=== PATIENT | male | born 1990 | race Caucasian/White ===

== ENCOUNTER 2019-02-23 21:29 | Emergency (ER) | payer OTHER ==
[~2019-02-23] VITALS: Ht 182.9 cm; Wt 79.6 kg
--- NOTE | 2019-02-23 21:35 | ED.ADGEN ---
Past History Past Medical History: Anxiety, Depression, Fibromyalgia, Seizure, Schizophrenia, Other Past Medical History Borderline Personality, Schizoaffective, Behavior Disorder Hx. of Head Injury Adult General Chief Complaint Chief Complaint ".. I guess ... had a seizure... I was on Keppra 1500 .. but they took it down to 1000..." HPI HPI Patient is a 28 year old male [place] inmate who presents with above history of prolonged tonic-clonic seizure approximately 30 minutes. Pt. seizure resolved after two dosages of 5 mg versed IV x 2 by paramedics. Pt. recently had Keppra daily dosage reduced to `1000 mg from 1500. Pt. also on Depakote. Patient states his seizure disorder started after head trauma. Patient does have a history of psychological issues, depression, behavioral , schizoaffective, bipolar, borderline, hx of hallucinations and anxiety disorder. Hx. of attempted suicide by hanging 1 to 2 months ago. Patient denies any current drug use. Patient currently verbal and responds to questions appropriately.. Review of Systems Review of Systems Constitutional: Denies fever or chills [] Eyes: Denies change in visual acuity, redness, or eye pain [] HENT: Denies nasal congestion or sore throat [] Respiratory: Denies cough or shortness of breath [] Cardiovascular: No additional information not addressed in HPI [] GI: Denies abdominal pain, nausea, vomiting, bloody stools or diarrhea [] : Denies dysuria or hematuria [] Musculoskeletal: Denies back pain or joint pain [] Integument: Denies rash or skin lesions [] Neurologic: Denies headache, focal weakness or sensory changes [] Endocrine: Denies polyuria or polydipsia [] All other systems were reviewed and found to be within normal limits, except as documented in this note. Family History Family History Noncontributory Current Medications Current Medications Current Medications Medications (Trade) Dose Ordered Sig/Suzanne Start Time Stop Time Status Last Admin Dose Admin Lactated Ringer's 1,000 ml @ 1,000 mls/hr Q1H 02/23/19 21:45 02/23/19 22:44 DC 02/23/19 22:29 1,000 MLS/HR Levetiracetam (Keppra) 500 mg STK-MED ONCE 02/23/19 22:32 02/23/19 22:33 DC Levetiracetam 1000 mg/Sodium Chloride 100 ml @ 400 mls/hr 1X ONCE 02/23/19 21:45 02/23/19 22:03 DC 02/23/19 22:40 400 MLS/HR Lorazepam (Ativan Inj) 2 mg 1X ONCE 02/23/19 22:00 02/23/19 22:03 DC 02/23/19 22:28 2 MG Sodium Chloride 50 ml @ As Directed STK-MED ONCE 02/23/19 22:32 02/23/19 22:33 DC Valproic Acid (Depacon) 500 mg STK-MED ONCE 02/23/19 22:32 02/23/19 22:32 DC Valproic Acid 500 mg/Sodium Chloride 55 ml @ 55 mls/hr 1X 02/23/19 22:45 02/24/19 00:55 DC 02/23/19 22:40 55 MLS/HR Allergies Allergies Allergies Uncoded Allergies Type Severity Reaction Last Updated Verified pcn Allergy Unknown 02/23/19 Physical Exam Physical Exam Constitutional: Well developed, well nourished, no acute distress, non-toxic appearance. [] HENT: Normocephalic, atraumatic, bilateral external ears normal, oropharynx moist, no oral exudates, nose normal. []No bite de jesus on tongue. Eyes: PERRLA, EOMI, conjunctiva normal, no discharge. [] Neck: Normal range of motion, no tenderness, supple, no stridor. [] Cardiovascular:Heart rate regular rhythm, no murmur [] Lungs & Thorax: Bilateral breath sounds equal at apex on auscultation [] Abdomen: Bowel sounds creased, soft, no tenderness, no masses, no pulsatile masses. [] Pt. did not have urinary incontinence with his seizure like activity. Skin: Warm, dry, no erythema, no rash, multiple tattoos. Back: No tenderness, no CVA tenderness. [] Extremities: No tenderness, no cyanosis, no clubbing, ROM intact, no edema. [] Neurologic: Alert and oriented X 3, normal motor function, normal sensory function, no focal deficits noted. [] DTR + 2, Brachial and patella. ( noted during one shaking episode- no eye focus change, protective responsive intact, seizure activity stopped when we prepared to get a urinary cath placement. ) Psychologic: Affect normal, judgement normal, mood normal. [] Current Patient Data Vital Signs Vital Signs Date Time Temp Pulse Resp B/P (MAP) Pulse Ox O2 Delivery O2 Flow Rate FiO2 02/23/19 21:30 98.4 76 16 96 Room Air Lab Results Laboratory Tests Test 02/23/19 21:45 White Blood Count 5.1 x10^3/uL (4.0-11.0) Red Blood Count 4.07 x10^6/uL (4.30-5.70) L Hemoglobin 13.2 g/dL (13.0-17.5) Hematocrit 38.8 % (39.0-53.0) L Mean Corpuscular Volume 95 fL (79-100) Mean Corpuscular Hemoglobin 33 pg (25-35) Mean Corpuscular Hemoglobin Concent 34 g/dL (31-37) Red Cell Distribution Width 13.0 % (11.5-14.5) Platelet Count 168 x10^3/uL (140-400) Neutrophils (%) (Auto) 52 % (31-73) Lymphocytes (%) (Auto) 36 % (24-48) Monocytes (%) (Auto) 8 % (0-9) Eosinophils (%) (Auto) 3 % (0-3) Basophils (%) (Auto) 1 % (0-3) Neutrophils # (Auto) 2.7 x10^3uL (1.8-7.7) Lymphocytes # (Auto) 1.8 x10^3/uL (1.0-4.8) Monocytes # (Auto) 0.4 x10^3/uL (0.0-1.1) Eosinophils # (Auto) 0.1 x10^3/uL (0.0-0.7) Basophils # (Auto) 0.0 x10^3/uL (0.0-0.2) Erythrocyte Sedimentation Rate 1 (0-15) Prothrombin Time 11.0 SEC (9.4-11.4) Prothrombin Time INR 1.1 (0.9-1.1) Activated Partial Thromboplast Time 28 SEC (23-33) D-Dimer (Katie) 0.30 mg/L (0.00-0.50) Sodium Level 144 mmol/L (136-145) Potassium Level 3.6 mmol/L (3.5-5.1) Chloride Level 107 mmol/L (98-107) Carbon Dioxide Level 28 mmol/L (21-32) Anion Gap 9 (6-14) Blood Urea Nitrogen 11 mg/dL (8-26) Creatinine 1.0 mg/dL (0.7-1.3) Estimated GFR (Cockcroft-Gault) 90.3 Glucose Level 114 mg/dL (70-99) H Calcium Level 9.1 mg/dL (8.5-10.1) Magnesium Level 2.0 mg/dL (1.8-2.4) Total Bilirubin 0.3 mg/dL (0.2-1.0) Direct Bilirubin 0.1 mg/dL (0.0-0.2) Aspartate Amino Transferase (AST) 25 U/L (15-37) Alanine Aminotransferase (ALT) 18 U/L (16-63) Alkaline Phosphatase 74 U/L (46-116) Creatine Kinase 515 U/L (39-308) H Troponin I Quantitative < 0.017 ng/mL (0-0.055) MC-Orf-R-Type Natriuretic Peptide 113 pg/mL (0-124) Total Protein 6.7 g/dL (6.4-8.2) Albumin 3.9 g/dL (3.4-5.0) Lipase 72 U/L (73-393) L Valproic Acid Level 43 mcg/mL (50-100) L Valproic Acid Last Dose Date Unknown Valproic Acid Last Dose Time Unknown EKG EKG [][address] [address] IMAGING REPORT Signed PATIENT: CALVIN HERRMANN ACCOUNT: [id number] : 1990 LOCATION: ER AGE: 28 SEX: M EXAM STATUS: PRE ER ORD. PHYSICIAN: MICHELLE HAILE MD REASON: SEIZURE PROCEDURE: PORTABLE CHEST 1V PORTABLE CHEST 1V History: Seizures Comparison: None. Findings: Single view of the chest is submitted. There is no infiltrate, pneumothorax, or effusion. The pericardial cardiac silhouette is within normal limits in size. Impression: 1. There is no radiographic evidence of acute cardiopulmonary disease. Electronically signed by: Rosalva Castillo MD (02/23/2019 10:16 PM) [facility] DICTATED AND SIGNED BY: ROSALVA CASTILLO MD DATE: 02/23/192215 CC: MICHELLE HAILE MD ~ Radiology/Procedures Radiology/Procedures [address] [address] IMAGING REPORT Signed PATIENT: CALVIN HERRMANN ACCOUNT: [id number] : 1990 LOCATION: ER AGE: 28 SEX: M EXAM STATUS: PRE ER ORD. PHYSICIAN: MICHELLE HAILE MD REASON: MULITPLE SEIZURES PROCEDURE: CT HEAD WO CONTRAST CT HEAD WO CONTRAST History: Multiple seizures Comparison: None. Technique: Noncontrast CT imaging was performed of the head. Exposure: One or more of the following individualized dose reduction techniques were utilized for this examination: 1. Automated exposure control 2. Adjustment of the mA and/or kV according to patient size 3. Use of iterative reconstruction technique. Findings: No acute extra-axial or parenchymal hemorrhage is identified. There is no significant intra-axial mass effect, midline shift, or extra-axial fluid collection. The to-white differentiation of the major vascular territories is preserved. The ventricles, sulci, and cisterns are within normal limits in size and configuration. Mastoid air cells are aerated. There is likely mucus retention cyst left sigmoid sinus about 0.9 cm, small air-fluid level or dependent mucosal thickening of the sphenoid sinus. No acute calvarial abnormality is identified. Impression: 1. No acute intracranial abnormality is identified. 2. There is small air-fluid level or dependent mucosal thickening in the sphenoid sinus. Electronically signed by: Rosalva Castillo MD (02/23/2019 10:16 PM) [facility] DICTATED AND SIGNED BY: ROSALVA CASTILLO MD DATE: 02/23/[address] [address] IMAGING REPORT Signed PATIENT: CALVIN HERRMANN ACCOUNT: [id number] : 1990 LOCATION: ER AGE: 28 SEX: M EXAM STATUS: PRE ER ORD. PHYSICIAN: MICHELLE HAILE MD REASON: MULITPLE SEIZURES PROCEDURE: CT HEAD WO CONTRAST CT HEAD WO CONTRAST History: Multiple seizures Comparison: None. Technique: Noncontrast CT imaging was performed of the head. Exposure: One or more of the following individualized dose reduction techniques were utilized for this examination: 1. Automated exposure control 2. Adjustment of the mA and/or kV according to patient size 3. Use of iterative reconstruction technique. Findings: No acute extra-axial or parenchymal hemorrhage is identified. There is no significant intra-axial mass effect, midline shift, or extra-axial fluid collection. The to-white differentiation of the major vascular territories is preserved. The ventricles, sulci, and cisterns are within normal limits in size and configuration. Mastoid air cells are aerated. There is likely mucus retention cyst left sigmoid sinus about 0.9 cm, small air-fluid level or dependent mucosal thickening of the sphenoid sinus. No acute calvarial abnormality is identified. Impression: 1. No acute intracranial abnormality is identified. 2. There is small air-fluid level or dependent mucosal thickening in the sphenoid sinus. Electronically signed by: Rosalva Castillo MD (02/23/2019 10:16 PM) [facility] DICTATED AND SIGNED BY: ROSALVA CASTILLO MD DATE: 02/23/192215 [][place] [address] IMAGING REPORT Signed PATIENT: CALVIN HERRMANN ACCOUNT: [id number] : 1990 LOCATION: ER AGE: 28 SEX: M EXAM STATUS: PRE ER ORD. PHYSICIAN: MICHELLE HAILE MD REASON: SEIZURE PROCEDURE: PORTABLE CHEST 1V PORTABLE CHEST 1V History: Seizures Comparison: None. Findings: Single view of the chest is submitted. There is no infiltrate, pneumothorax, or effusion. The pericardial cardiac silhouette is within normal limits in size. Impression: 1. There is no radiographic evidence of acute cardiopulmonary disease. Electronically signed by: Rosalva Castillo MD (02/23/2019 10:16 PM) [facility] DICTATED AND SIGNED BY: ROSALVA CASTILLO MD DATE: 02/23/19 2216 Course & Med Decision Making Course & Med Decision Making Pertinent Labs and Imaging studies reviewed. (See chart for details) Note pt. refused urine and or cath for urine. Pt. to increase Sreprfuk709 bid, and Keppra 1500. Consider follow up with neurology. There is some question on the the reported seizure he had here - appeared to be pseudo seizure. Would expect CK to be more than 5l5 if he behaving tonic clonic seizure for 30 min. Did have a subtherapeutic Valporic level 43. Would follow up prolactin level draw here. If he did have Tonic Clonic seizure would expect prolactin level to be elevated. [] Final Impression Final Impression 1. Hx. of Tonic-clonic seizure[]x 30 min prior to arrival 2. Hx of Seizure Disorder 3. Hx. of borderline personality 4. History depression 5 History of anxiety disorder 6. History of schizoaffective disorder 7.Past history of polysubstance abuse 8. Subtherapeutic Valporic level 43 9. Mild elevation CK 515 10. Concern may be having Pseudo Seizures for Meds and other secondary gain (even if he does have a seizure disorder hx) Dragon Disclaimer Dragon Disclaimer This electronic medical record was generated, in whole or in part, using a voice recognition dictation system. Dragon Disclaimer This chart was dictated in whole or in part using Voice Recognition software in a busy, high-work load, and often noisy Emergency Department environment. It may contain unintended and wholly unrecognized errors or omissions. Dragon Disclaimer This chart was dictated in whole or in part using Voice Recognition software in a busy, high-work load, and often noisy Emergency Department environment. It may contain unintended and wholly unrecognized errors or omissions. MICHELLE HAILE MD Feb 23, 2019 21:35
[2019-02-23] MEDS ORDERED: IV RINGERS SOLUTION,LACTATED 1,000 ML IV SCH (21:45)
--- NOTE | 2019-02-23 21:46 | EKG ---
[address] [address] Test Date: 2019-02-23 Test Time: 21:43:05 Pat Name: CALVIN HERRMANN Department: Room: Gender: M [employer]: : 1990 Requested By: MICHELLE HAILE Order Number: [id number] Reading MD: Measurements Intervals [place] Rate: 90 P: 57 WI: 144 QRS: 81 QRSD: 100 T: 43 QT: 352 QTc: 435 Interpretive Statements SINUS RHYTHM NO SPECIFIC ECG ABNORMALITIES RI6.01 No previous ECG available for comparison
[2019-02-23 22:06] LABS: BASO % 1 % (0-3); EOS # 0.1 x10^3/uL (0.0-0.7); EOS % 3 % (0-3); HEMATOCRIT 38.8 % (39.0-53.0); HEMOGLOBIN 13.2 g/dL (13.0-17.5); LYMPH # 1.8 x10^3/uL (1.0-4.8); LYMPH % 36 % (24-48); MEAN CORPUSCULAR HEMOGLOBIN 33 pg (25-35); MEAN CORPUSCULAR HGB CONC 34 g/dL (31-37); MEAN CORPUSCULAR VOLUME 95 fL (79-100); MONO # 0.4 x10^3/uL (0.0-1.1); MONO % 8 % (0-9); NEUT # 2.7 x10^3uL (1.8-7.7); NEUT % 52 % (31-73); PLATELET COUNT 168 x10^3/uL (140-400); RED BLOOD COUNT 4.07 x10^6/uL (4.30-5.70); WHITE BLOOD COUNT 5.1 x10^3/uL (4.0-11.0)
--- NOTE | 2019-02-23 22:18 | RAD ---
CT HEAD WO CONTRAST History: Multiple seizures Comparison: None. Technique: Noncontrast CT imaging was performed of the head. Exposure: One or more of the following individualized dose reduction techniques were utilized for this examination: 1. Automated exposure control 2. Adjustment of the mA and/or kV according to patient size 3. Use of iterative reconstruction technique. Findings: No acute extra-axial or parenchymal hemorrhage is identified. There is no significant intra-axial mass effect, midline shift, or extra-axial fluid collection. The to-white differentiation of the major vascular territories is preserved. The ventricles, sulci, and cisterns are within normal limits in size and configuration. Mastoid air cells are aerated. There is likely mucus retention cyst left sigmoid sinus about 0.9 cm, small air-fluid level or dependent mucosal thickening of the sphenoid sinus. No acute calvarial abnormality is identified. Impression: 1. No acute intracranial abnormality is identified. 2. There is small air-fluid level or dependent mucosal thickening in the sphenoid sinus. Electronically signed by: Lior Carmona MD (02/23/2019 10:16 PM) [facility]
--- NOTE | 2019-02-23 22:19 | RAD ---
PORTABLE CHEST 1V History: Seizures Comparison: None. Findings: Single view of the chest is submitted. There is no infiltrate, pneumothorax, or effusion. The pericardial cardiac silhouette is within normal limits in size. Impression: 1. There is no radiographic evidence of acute cardiopulmonary disease. Electronically signed by: Lior Carmona MD (02/23/2019 10:16 PM) [facility]
[2019-02-23 22:26] LABS: ALBUMIN 3.9 g/dL (3.4-5.0); CALCIUM 9.1 mg/dL (8.5-10.1); DIRECT BILIRUBIN 0.1 mg/dL (0.0-0.2); GFR 90.3; POTASSIUM 3.6 mmol/L (3.5-5.1); TOTAL BILIRUBIN 0.3 mg/dL (0.2-1.0); TOTAL PROTEIN 6.7 g/dL (6.4-8.2)
[2019-02-23] MEDS ORDERED: IV NORMAL SALINE 100ML 100 ML ONE (22:31)
[2019-02-23] MEDS ORDERED: levETIRAcetam 500 MG/5 ML VIAL IV ONE (22:32)
[2019-02-23] MEDS ORDERED: VALPROATE SODIUM 500 MG/5 ML VIAL IV ONE (22:32)
[2019-02-23] MEDS ORDERED: IV NORMAL SALINE 50ML 50 ML ONE (22:32)
[2019-02-23] MEDS ORDERED: VALPROATE SODIUM 500 MG in IV NORMAL SALINE 50ML 50 ML IV SCH (22:45)
[2019-02-23 23:06] LABS: VAL ACID 43 mcg/mL (50-100)
[2019-02-23 23:48] LABS: SEDIMENTATION RATE 1 (0-15)
[2019-02-24] MEDS ORDERED: LEVE100020 PO (00:03)
[2019-02-24] MEDS ORDERED: DIVA500T4 PO (00:03)
[2019-02-24 00:30] VITALS: BP 117/68
== END 2019-02-24 00:35 | disposition home or self-care (01) ==
LOC: EEVIPCON 21:29 → ER 21:29
DX: G40.409 Other generalized epilepsy and epileptic syndromes, not intractable, without status epilepticus (principal); F60.3 Borderline personality disorder; F32.9 Major depressive disorder, single episode, unspecified; F41.9 Anxiety disorder, unspecified; F25.9 Schizoaffective disorder, unspecified; F19.10 Other psychoactive substance abuse, uncomplicated; R97.0 Elevated carcinoembryonic antigen [CEA]; M79.7 Fibromyalgia; F20.9 Schizophrenia, unspecified; Z88.0 Allergy status to penicillin
CPT/HCPCS: 36415; 70450; 71045; 80048; 80076; 80164; 82550; 83690; 83735; 83880; 84146; 84443; 84484; 85025; 85379; 85610; 85651; 85730; 93005; 96365; 96367; 96375; 99285; J1953; J2060; J3490; J7120

== ENCOUNTER 2019-02-24 12:43 | Emergency (ER) | payer OTHER ==
[~2019-02-24] VITALS: Ht 182.9 cm; Wt 79.6 kg
[~2019-02-24 12:43] MED LIST: DIVA500T4 PO; LEVE100020 PO
[2019-02-24 13:06] VITALS: BP 132/68
[2019-02-24] MEDS ORDERED: levETIRAcetam 500 MG TABLET PO STA (13:40)
--- NOTE | 2019-02-24 13:44 | PHYS DOC ---
Past History Past Medical History: Other Additional Past Medical Histor: psuedoseizures Past Surgical History: No Surgical History Alcohol Use: None Drug Use: None Adult General Chief Complaint Chief Complaint: SEIZURE HPI HPI Patient is a 28-year-old male presents with reported prolonged seizure. He was given multiple doses of Ativan and then [facility] arrived [facility], and was given additional Versed from EMS. Patient reports that he is on 1000 mg of Keppra twice a day. Denies any recent changes in his seizure medicine dosages. Denies any headache or fever.[] Review of Systems Review of Systems Constitutional: Denies fever or chills [] Eyes: Denies change in visual acuity, redness, or eye pain [] HENT: Denies nasal congestion or sore throat [] Respiratory: Denies cough or shortness of breath [] Cardiovascular: No chest pain or palpitations[] GI: Denies abdominal pain, nausea, vomiting, bloody stools or diarrhea [] : Denies dysuria or hematuria [] Musculoskeletal: Denies back pain or joint pain [] Integument: Denies rash or skin lesions [] Neurologic: Denies headache, focal weakness or sensory changes, see history of present illness [] Endocrine: Denies polyuria or polydipsia [] All other systems were reviewed and found to be within normal limits, except as documented in this note. Allergies Allergies Allergies Uncoded Allergies Type Severity Reaction Last Updated Verified pcn Allergy Unknown 02/23/19 Physical Exam Physical Exam Constitutional: Well developed, well nourished, no acute distress, non-toxic appearance. [] HENT: Normocephalic, atraumatic, bilateral external ears normal, oropharynx moist, no oral exudates, nose normal. [] Eyes: PERRLA, EOMI, conjunctiva normal, no discharge. [] Neck: Normal range of motion, no tenderness, supple, no stridor. [] Cardiovascular:Heart rate regular rhythm, no murmur [] Lungs & Thorax: Bilateral breath sounds clear to auscultation [] Abdomen: Bowel sounds normal, soft, no tenderness, no masses, no pulsatile masses. [] Skin: Warm, dry, no erythema, no rash. [] Back: No tenderness, no CVA tenderness. [] Extremities: No tenderness, no cyanosis, no clubbing, ROM intact, no edema. [] Neurologic: Alert and oriented X 3, normal motor function, normal sensory fu nction, no focal deficits noted. [] Psychologic: Affect normal, judgement normal, mood normal. [] Current Patient Data Vital Signs Vital Signs Date Time Temp Pulse Resp B/P (MAP) Pulse Ox O2 Delivery O2 Flow Rate FiO2 02/24/19 13:06 88 18 98 Room Air EKG EKG EKG shows a sinus rhythm at 64 bpm, normal axis, normal QTC at 383 ms, no ST elevations. Compared with EKG performed yesterday at 2143, no acute changes are present.[] Radiology/Procedures Radiology/Procedures [] Course & Med Decision Making Course & Med Decision Making Pertinent Labs and Imaging studies reviewed. (See chart for details) ED course: Patient arrived, was placed in bed, and tolerated exam well. Patient was "tremoring" and then told he needed a urinary catheter and he stopped immediately. After the return of the laboratory studies, these were discussed with the patient. Consultation was made with the hospitalist service here at [facility]. Due to a lack of video assisted EEG, they deferred on admission. Consultation then was made with Dr. Pace at [facility] who graciously accepted the patient. Plan was discussed with the patient who voiced understanding. All questions were answered. He was transferred in improved condition. Medical decision making: Her going additional imaging at this time given that the patient had CT scan performed last night. Patient denied recent changes in his medicine but the note from last night indicates patient was recently decreased from 1500- down to 1000 mg of Keppra recently. It is noted that his CPK has increased from the 500s to the 1100s range, and his prolactin which would not of been available last night is elevated 26 which is approximately 2 times a pulmonary normal. Patient with an underlying seizure disorder, concern for recurrent seizuresstatus epilepticus versus secondary gain. Patient is being transferred to a facility with video-assisted EEG to further evaluate.[] Dragon Disclaimer Dragon Disclaimer This electronic medical record was generated, in whole or in part, using a voice recognition dictation system. Departure Departure: Impression: Primary Impression: Seizures Disposition: 05 TRANSFER OTHER Condition: IMPROVED Referrals: PCP,GRANT (PCP) JAMIA FREED DO Feb 24, 2019 13:44
[2019-02-24 13:49] LABS: BASO % 1 % (0-3); EOS # 0.1 x10^3/uL (0.0-0.7); EOS % 3 % (0-3); HEMATOCRIT 40.7 % (39.0-53.0); HEMOGLOBIN 13.9 g/dL (13.0-17.5); LYMPH # 1.8 x10^3/uL (1.0-4.8); LYMPH % 41 % (24-48); MEAN CORPUSCULAR HEMOGLOBIN 33 pg (25-35); MEAN CORPUSCULAR HGB CONC 34 g/dL (31-37); MEAN CORPUSCULAR VOLUME 96 fL (79-100); MONO # 0.4 x10^3/uL (0.0-1.1); MONO % 9 % (0-9); NEUT # 2.1 x10^3uL (1.8-7.7); NEUT % 46 % (31-73); PLATELET COUNT 159 x10^3/uL (140-400); RED BLOOD COUNT 4.23 x10^6/uL (4.30-5.70); RED CELL DISTRIBUTION WIDTH 13.1 % (11.5-14.5); WHITE BLOOD COUNT 4.5 x10^3/uL (4.0-11.0)
[2019-02-24 14:01] LABS: BARBITURATES NEG (NEG); BENZODIAZEPINES POS (NEG); CANNABINOIDS NEG (NEG); COCAINE NEG (NEG); METHADONE NEG (NEG); OPIATES NEG (NEG); PHENCYCLIDINE NEG (NEG)
[2019-02-24 14:07] LABS: AMPHETAMINE/METHAMPHETAMINE NEG (NEG)
[2019-02-24 14:11] LABS: ALBUMIN 3.8 g/dL (3.4-5.0); ALBUMIN/GLOBULIN RATIO 1.3 (1.0-1.7); ALK PHOS 76 U/L (46-116); ALT (SGPT) 19 U/L (16-63); ANION GAP 11 (6-14); AST (SGOT) 32 U/L (15-37); BLOOD UREA NITROGEN 6 mg/dL (8-26); BUN/CREATININE RATIO 6 (6-20); CARBON DIOXIDE 28 mmol/L (21-32); CHLORIDE 108 mmol/L (98-107); GFR 90.3; GLUCOSE 107 mg/dL (70-99); POTASSIUM 3.8 mmol/L (3.5-5.1); SODIUM 147 mmol/L (136-145); TOTAL BILIRUBIN 0.3 mg/dL (0.2-1.0); TOTAL PROTEIN 6.7 g/dL (6.4-8.2)
[2019-02-24 14:13] LABS: VAL ACID 70 mcg/mL (50-100)
[2019-02-24 14:25] LABS: BACTERIA,URINE 0 /HPF (0-FEW); BILIRUBIN,URINE NEG (NEG); CLARITY,URINE CLEAR; COLOR,URINE YELLOW; GLUCOSE,URINE NEG (NEG); NITRITE,URINE NEG (NEG); RBC,URINE 0 /HPF (0-2); SQUAMOUS EPITHELIAL CELL,UR OCC /LPF; UROBILINOGEN,URINE 1 mg/dL (0.2 mg/dL); WBC,URINE 0 /HPF (0-4)
--- NOTE | 2019-02-24 14:28 | EKG ---
[address] [address] Test Date: 2019-02-24 Test Time: 13:48:43 Pat Name: CALVIN HERRMANN Department: Room: Gender: M [employer]: SHANTE : 1990 Requested By: JAMIA FREED Order Number: [id number] Reading MD: Teodoro Jimenez MD Measurements Intervals Brock Rate: 64 P: 57 MN: 152 QRS: 72 QRSD: 102 T: 56 QT: 368 QTc: 383 Interpretive Statements SINUS RHYTHM CONSIDER PERICARDITIC PATTERN Electronically Signed On 03-11-2019 9:18:04 CDT by Teodoro Jimenez MD
== END 2019-02-24 18:20 | disposition short-term general hospital (02) ==
LOC: ER 12:43 → EEVIPCON 12:43 → ER 18:20
DX: R56.9 Unspecified convulsions (principal); Z88.0 Allergy status to penicillin
CPT/HCPCS: 36415; 51702; 80053; 80164; 80177; 80307; 81001; 82550; 84146; 85025; 93005; 99285

== ENCOUNTER 2019-03-02 17:28 | Emergency (ER) | payer OTHER ==
[~2019-03-02] VITALS: Ht 182.9 cm; Wt 81.3 kg
[2019-03-02] MEDS ORDERED: IV NORMAL SALINE 1,000ML 1,000 ML IV ONE (17:30)
[2019-03-02 17:58] LABS: BASO % 1 % (0-3); EOS # 0.1 x10^3/uL (0.0-0.7); EOS % 1 % (0-3); HEMATOCRIT 42.2 % (39.0-53.0); HEMOGLOBIN 14.4 g/dL (13.0-17.5); LYMPH # 1.8 x10^3/uL (1.0-4.8); LYMPH % 25 % (24-48); MEAN CORPUSCULAR HEMOGLOBIN 33 pg (25-35); MEAN CORPUSCULAR HGB CONC 34 g/dL (31-37); MEAN CORPUSCULAR VOLUME 97 fL (79-100); MONO # 0.6 x10^3/uL (0.0-1.1); MONO % 9 % (0-9); NEUT # 4.6 x10^3uL (1.8-7.7); NEUT % 64 % (31-73); PLATELET COUNT 175 x10^3/uL (140-400); RED BLOOD COUNT 4.34 x10^6/uL (4.30-5.70); RED CELL DISTRIBUTION WIDTH 13.3 % (11.5-14.5); WHITE BLOOD COUNT 7.2 x10^3/uL (4.0-11.0)
[2019-03-02 18:09] LABS: ALBUMIN 4.1 g/dL (3.4-5.0); ALBUMIN/GLOBULIN RATIO 1.4 (1.0-1.7); CALCIUM 8.9 mg/dL (8.5-10.1); GFR 90.3; POTASSIUM 3.9 mmol/L (3.5-5.1); TOTAL BILIRUBIN 0.4 mg/dL (0.2-1.0)
--- NOTE | 2019-03-02 19:02 | PHYS DOC ---
Past History Past Medical History: Other Additional Past Medical Histor: psuedoseizures Past Surgical History: No Surgical History Alcohol Use: None Drug Use: None Adult General Chief Complaint Chief Complaint: SEIZURE HPI HPI Patient is a 28-year-old male from the [facility] who is coming in with seizure-like activity apparently had 30 minutes of shaking no tongue biting no incontinence no postictal period. He has had issues with pseudoseizures apparently it sounds like in the past although he is on Keppra and Depakote he went to [place] earlier this month he had a neurology consultation according to some of those notes "patient was having trembling movements definitely not in any type of seizure pattern. He was very sweaty. I put the patient out of bed and stood him up and he was able to stand on his own I kept telling him that he was not having epileptic seizures and he could stop and he finally did cease the movements."- Dandre's note dated February 25, 2019 in addition EEG was read as normal nonepileptic seizures on February 25, 2019. Review of Systems Review of Systems Limited by patient cooperation Current Medications Current Medications Current Medications Medications (Trade) Dose Ordered Sig/Suzanne Start Time Stop Time Status Last Admin Dose Admin Sodium Chloride 1,000 ml @ 1,000 mls/hr 1X ONCE 03/02/19 17:30 03/02/19 18:29 DC 03/02/19 18:38 1,000 MLS/HR Allergies Allergies Allergies Coded Allergies Type Severity Reaction Last Updated Verified Penicillins Allergy Intermediate 02/24/19 Yes Physical Exam Physical Exam Constitutional: Well developed, patient is having intermittent shaking of the arms and legs he is able to come out of this way speaking quietly. Also the nurses were taking his pants off to try to get a catheter urine and he lifted up his hips during the shaking to help them. HENT: Normocephalic, atraumatic, bilateral external ears normal, oropharynx moist, no oral exudates, nose normal. [] Eyes: PERRLA, EOMI, conjunctiva normal, no discharge. [] Neck: Normal range of motion, no tenderness, supple, no stridor. [] Cardiovascular:Heart rate regular rhythm, no murmur [] Lungs & Thorax: Bilateral breath sounds clear to auscultation [] Abdomen: Bowel sounds normal, soft, no tenderness, no masses, no pulsatile masses. [] Skin: Warm, dry, no erythema, no rash. [] Back: No tenderness, no CVA tenderness. [] Extremities: No tenderness, no cyanosis, no clubbing, ROM intact, no edema. [] Neurologic: Patient has some high-frequency shaking really not rhythmic in any way pupils are 4 mm and reactive bilaterally is able to calm down when I speak to him quietly Current Patient Data Vital Signs Vital Signs Date Time Temp Pulse Resp B/P (MAP) Pulse Ox O2 Delivery O2 Flow Rate FiO2 03/02/19 17:28 98.6 94 24 139/81 (100) 99 Room Air Lab Results Laboratory Tests Test 03/02/19 17:40 03/02/19 18:20 White Blood Count 7.2 x10^3/uL (4.0-11.0) Red Blood Count 4.34 x10^6/uL (4.30-5.70) Hemoglobin 14.4 g/dL (13.0-17.5) Hematocrit 42.2 % (39.0-53.0) Mean Corpuscular Volume 97 fL (79-100) Mean Corpuscular Hemoglobin 33 pg (25-35) Mean Corpuscular Hemoglobin Concent 34 g/dL (31-37) Red Cell Distribution Width 13.3 % (11.5-14.5) Platelet Count 175 x10^3/uL (140-400) Neutrophils (%) (Auto) 64 % (31-73) Lymphocytes (%) (Auto) 25 % (24-48) Monocytes (%) (Auto) 9 % (0-9) Eosinophils (%) (Auto) 1 % (0-3) Basophils (%) (Auto) 1 % (0-3) Neutrophils # (Auto) 4.6 x10^3uL (1.8-7.7) Lymphocytes # (Auto) 1.8 x10^3/uL (1.0-4.8) Monocytes # (Auto) 0.6 x10^3/uL (0.0-1.1) Eosinophils # (Auto) 0.1 x10^3/uL (0.0-0.7) Basophils # (Auto) 0.0 x10^3/uL (0.0-0.2) Sodium Level 142 mmol/L (136-145) Potassium Level 3.9 mmol/L (3.5-5.1) Chloride Level 106 mmol/L (98-107) Carbon Dioxide Level 27 mmol/L (21-32) Anion Gap 9 (6-14) Blood Urea Nitrogen 13 mg/dL (8-26) Creatinine 1.0 mg/dL (0.7-1.3) Estimated GFR (Cockcroft-Gault) 90.3 BUN/Creatinine Ratio 13 (6-20) Glucose Level 100 mg/dL (70-99) H Calcium Level 8.9 mg/dL (8.5-10.1) Total Bilirubin 0.4 mg/dL (0.2-1.0) Aspartate Amino Transferase (AST) 34 U/L (15-37) Alanine Aminotransferase (ALT) 23 U/L (16-63) Alkaline Phosphatase 81 U/L (46-116) Total Protein 7.0 g/dL (6.4-8.2) Albumin 4.1 g/dL (3.4-5.0) Albumin/Globulin Ratio 1.4 (1.0-1.7) Lactic Acid Level 1.7 mmol/L (0.4-2.0) EKG EKG [] Radiology/Procedures Radiology/Procedures [] Course & Med Decision Making Course & Med Decision Making Pertinent Labs and Imaging studies reviewed. (See chart for details) []Also the nurses were taking his pants off to try to get a catheter urine and he lifted up his hips during the shaking to help them Nonepileptic seizures based on EEG from February 25, 2019. Patient got 2 doses of Versed prior to my her evaluation at 6:30 PM according to nursing staff. At this point I will check electrolytes and monitor the patient with likely plan back to send back to [facility] Electrolytes normal lactic acid normal this argues strongly against true epilepsy seizure. Dragon Disclaimer Dragon Disclaimer This electronic medical record was generated, in whole or in part, using a voice recognition dictation system. Departure Departure: Impression: Primary Impression: Psychogenic nonepileptic seizure Disposition: 05 TRANSFER OTHER Condition: STABLE Referrals: PCP,GRANT (PCP) VANGIE JULIO MD Mar 02, 2019 19:02
[2019-03-02 19:33] LABS: BARBITURATES NEG (NEG); BENZODIAZEPINES POS (NEG); CANNABINOIDS NEG (NEG); COCAINE NEG (NEG); METHADONE NEG (NEG); OPIATES NEG (NEG); PHENCYCLIDINE NEG (NEG)
[2019-03-02 19:34] VITALS: BP 115/57
[2019-03-02 19:34] LABS: BACTERIA,URINE 0 /HPF (0-FEW); BILIRUBIN,URINE NEG (NEG); CLARITY,URINE CLEAR; COLOR,URINE YELLOW; GLUCOSE,URINE NEG (NEG); NITRITE,URINE NEG (NEG); RBC,URINE 0 /HPF (0-2); UROBILINOGEN,URINE 1 mg/dL (0.2 mg/dL)
[2019-03-02 19:35] LABS: SQUAMOUS EPITHELIAL CELL,UR OCC /LPF
[2019-03-02 19:37] LABS: AMPHETAMINE/METHAMPHETAMINE NEG (NEG)
== END 2019-03-02 19:41 | disposition home or self-care (01) ==
LOC: EEVIPCON 17:28 → ER 17:28
DX: G40.89 Other seizures (principal); F45.8 Other somatoform disorders; Z88.0 Allergy status to penicillin
CPT/HCPCS: 36415; 80053; 80307; 81001; 83605; 85025; 93005; 99285-25; J7030